=== PATIENT | female | born 1965 | race Caucasian/White ===

== ENCOUNTER → 2020-02-01 | Outpatient (CLI) | payer OTHER ==
--- NOTE | 2020-02-01 14:40 | RAD ---
EXAM: Right hand, 3 views; right third finger, 3 views. HISTORY: Pain. COMPARISON: None. FINDINGS: 3 views of the right hand and right lung finger are obtained. There is no acute fracture. There is slight radial deviation of the third distal phalanx relative to the middle phalanx. No subluxation or dislocation is seen. There is a tiny ossicle overlying the dorsal aspect of the third distal interphalangeal joint, likely a chronic fragmented osteophyte or chronic nonunited fracture fragment. There is second distal interphalangeal joint spurring. No foreign body is seen. IMPRESSION: 1. No acute osseous finding. 2. Slight radial deviation of the distal third phalanx, likely degenerative or the sequela of remote injury. 3. Tiny chronic nonunited fracture fragment or fragments osteophyte along the dorsal aspect of the third distal interphalangeal joint. 4. Mild second distal interphalangeal joint osteoarthritis. Electronically signed by: Bhavya Goodwin MD (02/01/2020 2:37 PM) [id number]
--- NOTE | 2020-02-01 14:43 | RAD ---
EXAM: Soft tissue ultrasound right upper extremity. HISTORY: Soft tissue mass. COMPARISON: None. FINDINGS: Sonographic evaluation of the right lateral upper arm was performed at the site of palpable concern. This reveals a 2.4 x 1.2 x 4.8 cm fat echogenicity mass consistent with a subcutaneous lipoma. There is no involvement of deeper compartments. There is flow along its periphery but not within it. IMPRESSION: 1. 4.8 x 2.4 cm septated mass consistent with a lipoma. Recommend ongoing clinical follow-up of palpable foci to ensure stability. If this is not clinically consistent with a lipoma, MRI with and without contrast is recommended for further evaluation. Electronically signed by: Carla Abbott MD (02/01/2020 2:40 PM) [id number]
== END ==
LOC: US 11:25
PROVIDERS: ATTEND Family Medicine
DX: M19.041 Primary osteoarthritis, right hand (principal); R22.31 Localized swelling, mass and lump, right upper limb
CPT/HCPCS: 73130; 73140; 76881

== ENCOUNTER → 2020-07-11 | Outpatient (CLI) | payer OTHER ==
[~2020-07-11] MED LIST: OMEP40CA45 PO; TRIA1CAP3 PO
== END ==
LOC: LAB 15:35
PROVIDERS: ATTEND Surgery
DX: Z01.812 Encounter for preprocedural laboratory examination (principal); Z20.828 Contact with and (suspected) exposure to other viral communicable diseases
CPT/HCPCS: U0003

== ENCOUNTER 2020-07-15 07:45 | Day surgery (SDC) | payer OTHER ==
[~2020-07-15] VITALS: Ht 157.5 cm; Wt 92.1 kg
[~2020-07-15 07:45] MED LIST changes: +HYDROmorphone 2 MG/ML VIAL IV PRN; +IV RINGERS,LACTATED 1000ML 1,000 ML IV SCH; +LIDOCAINE 2% PF 5 ML VIAL. ONE; +MIDAZOLAM HCL/PF 2 MG/2 ML VIAL. ONE; +MORPHINE SULFATE 2 MG/ML VIAL. IV PRN; +ONDANSETRON PF 4 MG/2 ML VIAL. IV PRN; +PROCHLORPERAZINE 10 MG/2 ML VIAL. IV PRN; +PROPOFOL 10 MG/ML (20ML) VIAL. IV ONE; +fentaNYL PF VIAL 100 MCG/2 ML VIAL IV PRN; +fentaNYL PF VIAL 100 MCG/2 ML VIAL ONE
[2020-07-15] MEDS ORDERED: LIDOCAINE 1%/EPI 1:100,000 20 ML VIAL. ONE (08:42)
[2020-07-15] MEDS ORDERED: BUPIVACAINE-EPI 0.5%-1:200000 MPF 30 ML VIAL. INJ ONE (09:00)
[2020-07-15] MEDS ORDERED: DEXAMETHASONE SOD PHOS 4 MG/ML VIAL ONE (09:25)
[2020-07-15] MEDS ORDERED: ONDANSETRON PF 4 MG/2 ML VIAL. ONE (09:25)
--- NOTE | 2020-07-15 10:04 | PDOC4 ---
Operative Note Operative Note Operative Note: Preoperative Diagnosis: Right upper arm mass Postoperative Diagnosis: Same Procedure: Excision of right upper arm mass Surgeon: Bobby Applied [employer] Teacher: Joseph IBRAHIM Anesthesia: General EBL: 5 mL Specimen: R upper arm mass, 4 X 2 cm Drains: None Complications: None Indication: The patient is a 55-year-old female who was referred with a subcutaneous mass of the right upper arm. She states the mass has increased and does cause some discomfort. She requests excision. The risks of surgery were noted which include bleeding, infection, recurrence, pain, potential need for additional surgery procedure. She understands and would like to proceed. Description: The patient was taken to the operating room and placed supine in the operating table. General anesthesia was performed. The right upper arm was prepped with ChloraPrep and draped in a standard surgical manner. A small incision was made in the skin lines. Cautery dissection was carried down to the subcutaneous tissues. The mass was comprised of lobulated adipose tissue consistent with a lipoma. The mass was readily delivered and fully excised. The mass was sent to pathology for evaluation. A few small bleeding spots were controlled with cautery. Hemostasis was good and no other abnormalities were noted. The skin was approximated with 4-0 Monocryl. Steri-Strips and a sterile dressing were applied. The patient tolerated the procedure well and was sent to the recovery room in stable condition. At the end of the case all counts were correct. RED HAIR MD Jul 15, 2020 10:04
[2020-07-15] MEDS ORDERED: fentaNYL PF VIAL 100 MCG/2 ML VIAL ONE (10:06)
--- NOTE | 2020-07-15 10:07 | DISCH ---
DISCHARGE INSTRUCTIONS Condition on Discharge Condition on Discharge: Stable Activity After Discharge Activity Instructions for Disc: Activity as tolerated Diet after Discharge Diet after Discharge: Regular Wound Incision Care Wound/Incision Care: Other, see below (keep dressing clean and dry X 72 hours, may then remove and shower) Follow-Up Follow up with: Dr Hair in 2 weeks in office, call for appointment [phone] RED HAIR MD Jul 15, 2020 10:07
[2020-07-15] MEDS: fentaNYL PF VIAL 100 MCG/2 ML VIAL IV PRN ×2 (10:20→10:40)
[2020-07-15] MEDS ORDERED: HYDROcodone/APAP 5/325MG 1 TAB TABLET PO PRN (10:30)
[2020-07-15] MEDS ORDERED: MORPHINE SULFATE 2 MG/ML VIAL. ONE (10:41)
[2020-07-15 11:14] VITALS: BP 104/40
--- NOTE | 2020-07-17 18:07 | PATHOLOGY ---
[facility] Accession Number: [id number] . 01 Material submitted: . arm - RIGHT UPPER ARM MASS. Modifiers: right, upper . 01 Clinical history: . MASS RIGHT ARM . 02 Diagnosis: Segments of adipose tissue, right upper arm mass: - Lipoma. (JPM:paula; 07/17/2020) QMS 07/17/2020 1517 Local . 02 Comment: There is no evidence of malignancy. (JPM:paula; 07/17/2020) . 02 Electronically signed: . Dayron Moore MD, Pathologist NPI- [id number] . 01 Gross description: . The specimen is received in formalin, labeled "Jessa Gibson, right upper arm mass" and consists of multiple irregular segments of yellow lobulated tissue measuring 4.8 x 2.8 x 1.5 cm. Sectioning shows homogeneous yellow cut surfaces and customer assistance representative sections are submitted in A1-A2. (SDY; 07/16/2020) SYU/SYU 07/16/2020 1716 Local . 02 Pathologist provided ICD-10: D17.21 . 02 CPT . 902962 Specimen Comment: A courtesy copy of this report has been sent to [phone], [phone] Specimen Comment: [phone] Specimen Comment: Report sent to / DR ELDRIDGE Performed at: 01 [facility] [address], [place] [id number] MD Nain Cortez MD Phone: [phone] Performed at: 02 [facility] [address] [place], [place] [id number] MD Dayron Moore MD Phone: [phone]
== END 2020-07-15 11:42 | disposition home or self-care (01) ==
LOC: SURG 07:45
PROVIDERS: ATTEND Surgery
DX: R22.31 Localized swelling, mass and lump, right upper limb (principal); D17.21 Benign lipomatous neoplasm of skin and subcutaneous tissue of right arm; I10 Essential (primary) hypertension; G47.30 Sleep apnea, unspecified; K21.9 Gastro-esophageal reflux disease without esophagitis; M19.90 Unspecified osteoarthritis, unspecified site; E66.9 Obesity, unspecified; Z98.51 Tubal ligation status; Z90.49 Acquired absence of other specified parts of digestive tract; Z98.890 Other specified postprocedural states; Z79.899 Other long term (current) drug therapy; Z68.37 Body mass index [BMI] 37.0-37.9, adult
CPT/HCPCS: 24071; J0690; J1100; J2250; J2270; J2405; J2704; J3010; J3490